=== PATIENT | female | born 1955 | race Caucasian/White ===

== ENCOUNTER 2023-05-14 14:13 | Emergency (ER) | payer MEDICARE, OTHER ==
[~2023-05-14] VITALS: Ht 172.7 cm; Wt 79.4 kg
[2023-05-14] MEDS ORDERED: IBUP-1955 PO (16:08)
[2023-05-14] MEDS ORDERED: LIDO30AD10 TP (16:08)
[2023-05-14] MEDS ORDERED: METH4TAB3 PO (16:08)
[2023-05-14] MEDS ORDERED: KETOROLAC TROMETHAMINE 15 MG INJ IM ONE (16:15)
[2023-05-14] MEDS ORDERED: KETOROLAC TROMETHAMINE 15 MG INJ ONE (16:21)
[2023-05-14 16:32] VITALS: BP 118/80; TEMP 98; O2SAT 99
== END 2023-05-14 16:33 | disposition home or self-care (01) ==
LOC: ER 14:18
DX: M50.320 Other cervical disc degeneration, mid-cervical region, unspecified level (principal); M25.511 Pain in right shoulder; E03.9 Hypothyroidism, unspecified; Z60.2 Problems related to living alone
CPT/HCPCS: 72125; 73030; A4606; A4663; J1885